=== PATIENT | female | born 1940 | race Hispanic/Latino ===

== ENCOUNTER 2016-06-08 03:31 | Inpatient (IN) | payer MEDICARE ==
[2016-06-08] MEDS ORDERED: NACL 0.9% 1000 ML 1,000 ML IV ONE (04:00)
[2016-06-08] MEDS ORDERED: SUBLIMAZE IV ONE (04:21)
[2016-06-08] MEDS ORDERED: BABY ASPIRIN PO ONE (04:22)
--- NOTE | 2016-06-08 04:22 | Emergency Department Report ---
HPI - General Chief Complaint: Extremity Injury, Lower Time Seen by Provider: 06/08/16 04:19 - HPI HPI: The patient is a 76-year-old female who presents for evaluation of right hip pain. The patient states that she fell shortly after midnight, approximately 4 hours prior to my evaluation, stating trauma to the right ear. She reports constant 10/10 in severity pain since the fall, throbbing in quality, exacerbated with attempting movement of the right leg at the hip joint. She denies trauma elsewhere, head injury, headache, neck pain, chest pain, back pain , abdominal pain. ED Past Medical Hx - Past Medical History Previous Medical History?: Yes Hx Arthritis: Yes Hx Psychiatric Treatment: Yes (depression) Additional medical history: polymalgia - Surgical History Past Surgical History?: Yes Hx Appendectomy: Yes Additional Surgical History: tubal ligation, hyster, tonsil - Social History Smoking Status: Never Smoker Substance Use Type: Alcohol - Medications Home Medications: Home Medications Medication Instructions Recorded Confirmed Last Taken Type DULoxetine [Cymbalta] 30 mg PO QDAY 06/08/16 06/08/16 Unknown History ED Review of Systems ROS: Stated complaint: RT HIP PAIN Other details as noted in HPI Constitutional: denies: fever ENT: denies: throat or neck pain Respiratory: denies: cough, shortness of breath Cardiovascular: denies: chest pain Endocrine: denies unexplained weight loss or gain Gastrointestinal: denies: abdominal pain, nausea Genitourinary: denies: dysuria Musculoskeletal: reports right hip pain denies: leg swelling Skin: denies: rash Neurological: denies: headache Hematological/Lymphatic: denies: easy bleeding or easy bruising Psych: denies sadness or hopelessness Physical Exam - Physical Exam Vital Signs: Vital Signs 06/08/16 03:36 Pulse Rate 78 Respiratory 20 Rate Blood Pressure 86/53 O2 Sat by Pulse 96 Oximetry Physical Exam: General: well-nourished, well-developed, no acute distress Head: Normocephalic, atraumatic Eyes: normal sclera ENT: Mucous membranes are pale and dry Neck: No neck stiffness, no cervical adenopathy Respiratory: Breath sounds equal bilaterally, no wheezing, rales, or rhonchi Cardio: S1 and S2 present, no murmurs, rubs, gallops, capillary refill is delayed Abdomen: Normoactive bowel sounds, soft abdomen, no rigidity, no guarding or rebound tenderness Musc: Inspection of the right leg reveals a shortened externally rotated right leg, tenderness to palpation to the right hip, distal sensation, motor function , and pulses intact Skin: No rash Neuro: no facial drooping, normal speech Psych: Normal affect ED Course Vital Signs 06/08/16 03:36 Pulse Rate 78 Respiratory 20 Rate Blood Pressure 86/53 O2 Sat by Pulse 96 Oximetry ED Medical Decision Making - Medical Decision Making The patient was seen and examined by myself. The patient is placed on a monitor and storage bin tender and continuous pulse ox. On initial evaluation, the patient was found to be in no distress. Evaluation orders were placed. The patient received IV fentanyl via EMS in route. X-ray of the right hip reveals a displaced acute right femoral neck fracture. The patient is given 1 L normal saline fluid bolus. IV fentanyl is ordered for the patient. The on-call orthopedic surgeon Dr. Ramírez contacted. He agrees to consultation and requested the patient be made nothing by mouth and admitted to the hospitalist service. The on-call hospitalist Dr. Alvarado was contacted and informed of Dr. Ramírez's request. Dr. Alvarado agreed to admit the patient. The ED admit order was placed. The patient will be admitted in guarded condition. Critical care attestation.: If time is entered above; I have spent that time in minutes in the direct care of this critically ill patient, excluding procedure time. ED Disposition Clinical Impression: Closed displaced fracture of right femoral neck, Dehydration Fall from standing Qualifiers: Encounter type: initial encounter Qualified Code(s): W19.XXXA - Unspecified fall, initial encounter Disposition: OP ADMITTED IP TO THIS HOSP Is pt being admited?: Yes Does the pt Need Aspirin: Yes Condition: Fair Referrals: PRIMARY CARE, [Primary Care Provider] - 3-5 Days Time of Disposition: 04:21
[2016-06-08] MEDS ORDERED: DULCOLAX PR PRN (06:08)
[2016-06-08] MEDS ORDERED: TYLENOL PO PRN ×2 (06:08→19:49)
[2016-06-08] MEDS ORDERED: ZOFRAN IV PRN (06:08)
[2016-06-08] MEDS ORDERED: MORPHINE IV PRN (06:08)
[2016-06-08] MEDS ORDERED: MILK OF MAGNESIA PO PRN (06:08)
--- NOTE | 2016-06-08 06:12 | History and Physical Report ---
History of Present Illness Date of examination: 06/08/16 History of present illness: 76-year-old man with a history of depression comes emergency room today because she had a fall in her kitchen, landed on the right side and had difficulty moving. She complains of right hip pain Patient denies chest pain, palpitation, shortness of breath, cough, abdominal pain, hematochezia, dysuria, frequency, focal weakness, dysarthria, fever chills , polydipsia polyuria, hot or cold intolerance, easy bruisability, or rash or bleeding from mucosal membrane, rhinorrhea, epistaxis, earache, tinnitus, blurry vision, eye discharge, anxiety, depression. Other review of systems negative PAST SURGICAL HISTORY: Tubal ligation, appendectomy, tonsillectomy SOCIAL HISTORY: Drinks a glass of wine a day, no alcohol or drugs FAMILY HISTORY: Hypertension Medications and Allergies Allergies Allergy/AdvReac Type Severity Reaction Status Date / Time codeine Allergy Unknown Verified 06/08/16 03:48 Penicillins Allergy Unknown Verified 06/08/16 03:48 Home Medications Medication Instructions Recorded Confirmed Last Taken Type DULoxetine [Cymbalta] 30 mg PO QDAY 06/08/16 06/08/16 Unknown History Exam - Physical Exam Narrative exam: Gen. appearance: Patient lying in bed, no apparent distress HEENT: Normocephalic, atraumatic, pupils equally round and reactive to light, extraocular movement intact, and no sclericterus,. No JVD or thyromegaly or nodule,neck supple, no carotid bruit ,mucous membranes moist, no exudate or erythema Heart: S1, S2, regular rate and rhythm Lungs: Clear to auscultation bilaterally, breathing comfortable Abdomen: Positive bowel sounds, nontender, nondistended, no organomegaly Extremity: No edema, cyanosis, clubbing Skin: No rash, nodules, warm, dry Neuro: Oriented 3, cranial nerves II-12 intact, speech is fluent, sensory intact - Constitutional Vitals: Temp Pulse Resp BP Pulse Ox 79 15 96/52 94 06/08/16 05:45 06/08/16 05:45 06/08/16 05:45 06/08/16 05:45 Results - Labs CBC & Chem 7: 06/08/16 05:05 Assessment and Plan Follow official read of chest and hip x-ray Acute hip fracture Depression Admits medicine Start IV fluid, bowel rest, consult orthopedic surgery Start IV morphine, DVT prophylaxis Labs pending
[2016-06-08 06:15] LABS: Basophils % (Auto) 0.6 % (0.0-1.8); Eosinophils % (Auto) 2.3 % (0.0-4.3); Hematocrit 35.3 % (30.3-42.9); Hemoglobin 11.2 gm/dl (10.1-14.3); Mean Corpuscular HGB Conc 32 % (30-34); Mean Corpuscular Volume 82 fl (79-97); Platelet Count 307 K/mm3 (140-440); Red Blood Count 4.33 M/mm3 (3.65-5.03); White Blood Count 10.9 K/mm3 (4.5-11.0)
[2016-06-08 06:31] LABS: Mean Corpuscular Hemoglobin 26 pg (28-32)
[2016-06-08 06:32] LABS: Anion Gap 18 mmol/L; Blood Urea Nitrogen 16 mg/dL (7-17); Carbon Dioxide 23 mmol/L (22-30); Chloride 103.2 mmol/L (98-107); Glucose 94 mg/dL (65-100); Potassium 4.3 mmol/L (3.6-5.0); Sodium 140 mmol/L (137-145)
--- NOTE | 2016-06-08 06:38 | Admit Criteria Form ---
Admission Criteria Documentation: MUSCULOSKELETAL DISEASE GRG Clinical Indications for Admission to Inpatient Care (Place 'X' for any and all applicable criteria): Hospital admission is needed for appropriate care of the patient because of 1 or more of the following: [X ]I. Fracture, dislocation, or other musculoskeletal injury requiring inpatient care(medical) as indicated by 1 or more of the following(4)(5)(6)(7) [ ]a) Vertebral fracture requiring observation for instability or neurologic compromise (8) [ ]b) Compartment syndrome (proven or cannot be ruled out during observation level of care) (9) [ ]c) Limb-threatening injury [X ]d) Major injury requiring inpatient stabilization such as traction initiation or external fixation before internal fixation or closure of complex or open fracture [X ]e) Major injury requiring inpatient treatment after emergency or observation level care (as appropriate) [ ]f) Severe pain requiring acute inpatient management [ ]g) Injury with suspicion of abuse or neglect (eg., child, dependent elderly) [ ]II. Newly diagnosed or suspected bone, joint, or orthopedic device infection (e.g., osteomyelitis, septic arthritis) needing 1 or more of the following(1)(2)(3) [ ]a) IV antibiotics that cannot be initiated in other than inpatient setting (e.g., patient too unstable or home infusion not available) [ ]b) Device removal or replacement [ ]c) Bone or soft tissue debridement [ ]d) Joint drainage (drain placement or repetitive aspirations) [ ]III. Severe rheumatologic disease (e.g., systemic lupus erythematosus, rheumatoid arthritis) with complications or comorbidities (Also use Optimal Recovery Care Criteria or General Recovery Criteria as appropriate on the basis of predominant condition), including 1 or more of the following( 10)(11)(12)(13) [ ]a) Severe infection (e.g., STAFF REGISTERED NURSE infection, sepsis) (14) [ ]b) Respiratory complications, including 1 or more of the following : [ ]i) Pleural effusion with respiratory compromise [ ]ii) Pulmonary hypertension with congestive failure [ ]iii) Respiratory failure [ ]iv) Pulmonary hemorrhage (15) [ ]c) Hematologic disease, including 1 or more of the following: [ ]i) Coagulopathy with bleeding [ ]ii) Thrombosis with hypercoagulable state [ ]iii) Thrombotic thrombocytopenic purpura [ ]d) Cerebritis with seizures, psychosis, or other severe abnormalities [ ]e) Vertebral destruction with monitoring needed for cervical myelopathy& possible respiratory compromise [ ]f) Exacerbation that requires inpatient treatment (e.g., intravenous immunosuppression) (16) [ ]g) Acute renal failure [ ]h) Cerebritis with seizures, psychosis, Altered mental status, or other neurologic abnormalities [ ]i) Pericardial effusion with tamponade [ ]j) Vertebral destruction, with monitoring needed for cervical myelopathy and possible respiratory compromise [ ]IV. Severe vasculitis with complications or comorbidities (Also use Optimal Recovery Care Criteria General Recovery Criteria as appropriate on the basis of predominant condition), including 1 or more of the following(11)(12)(17)(18)(19)(20) [ ]a) Exacerbation that requires inpatient treatment (e.g., intravenous immunosuppression) (19)(21) [ ]b) Pulmonary hemorrhage (15) [ ]c) STAFF REGISTERED NURSE vasculitis with seizures, psychosis, Altered mental status that is severe or persistent, or other severe abnormalities (22) [ ]d) Cerebral infarction [ ]e) Gastrointestinal ischemia [ ]f) Gangrene or threatened amputation [ ]g) Renal failure (16) [ ]h) Other significant complications of vasculitis ( eg., tissue or organ ischemia, organ dysfunction ) [ ]V. Severe myopathy as indicated by 1 or more of the following (28)(29) [ ]a) New onset of airway compromise or inability to swallow [ ]b) Respiratory deterioration with observation needed for impending respiratory failure [ ]c) Exacerbation that requires inpatient treatment (e.g., intravenous immunosuppression) [ ]. Severe crystal gout (arthropathy) indicated by 1 or more of the following (23)(24) [ ]a) Severe pain requiring acute inpatient management [ ]b) Exacerbation that requires inpatient treatment (e.g., intravenous treatment) [ ]VII.Rhabdomyolysis and 1 or more of the following (25)(26)(27) [ ]a) Acute renal failure [ ]b) Need for intravenous hydration after emergency or observation level care (as appropriate) [ ]c) Inability to maintain oral hydration [ ]d) Change in mental status [ ]e) Electrolyte abnormality that remains after emergency or observation level care (as appropriate) [ ]VIII Post amputation complication, as indicated by ANY ONE of the following [ ]a) Infection [ ]b) Dehiscence [ ]c) Myodesis failure [ ]IX. Severe pain requiring acute inpatient management due to musculoskeletal condition [ ]X. Musculoskeletal Disease and ALL of the following: [ ]a) Symptom or finding for which emergency and observation care have failed or are not considered appropriate (Use General Criteria: Observation Care as appropriate) [ ]b) Presence of ANY ONE of the following [ ]i) A General Admission Criteria [ ]ii) A Pediatric General Admission Criteria The original [facility] [employer] content created by [facility] [employer] has been revised. The portions of the content which have been revised are identified through the use of italic text or in bold, and [facility] has neither reviewed nor approved the modified material. All other unmodified content is copyright [facility] [employer]. Please see references footnoted in the original [facility] edition 2016 Admission Criteria Met: Yes
[2016-06-08 06:40] LABS: INR 1.22 (0.87-1.13)
[2016-06-08 06:41] LABS: Partial Thromboplastin Time 43.4 Sec. (24.2-36.6)
[2016-06-08] MEDS ORDERED: NACL 0.45% 1000 ML 1,000 ML IV SCH (07:00)
[2016-06-08] MEDS ORDERED: MORPHINE ONE ×3 (07:21→16:55)
[2016-06-08] MEDS ORDERED: MORPHINE IV ONE (08:03)
--- NOTE | 2016-06-08 08:17 | XRay Report ---
AP PELVIS ONE VIEW: 06/08/16 03:31:00 CLINICAL: Fall and right leg pain. FINDINGS: Deformity of the right hip is consistent with a subcapital femoral neck fracture. Because of rotation, the fracture line is not clearly identified. However, the orientation of the femoral head to the neck is grossly abnormal. No callus. Moderate arthritis of the hips. Mild bilateral SI joint sclerosis. No other fracture. IMPRESSION: An acute displaced traumatic right femoral neck fracture.
--- NOTE | 2016-06-08 08:18 | XRay Report ---
AP CHEST : 06/08/16 04:30 CLINICAL: Preoperative clearance for right hip surgery. History of dyspnea and chest pain. COMPARISON:None FINDINGS: Normal heart and pulmonary vessels. The lungs are normally expanded and clear. No airspace disease or pleural effusion. The bones and soft tissues are unremarkable. IMPRESSION: No acute cardiopulmonary process.
[2016-06-08] MEDS ORDERED: VANCOMYCIN/NS 1 GM/250 ML 1 GM/250 ML BAG IV NR (09:00)
[2016-06-08] MEDS: LOVENOX SUB-Q SCH (10:15)
[2016-06-08] MEDS: MORPHINE IV PRN (10:38)
[2016-06-08] MEDS ORDERED: D5/0.45NS 1,000 ML IV SCH (11:00)
--- NOTE | 2016-06-08 14:37 | Consultation ---
History of Present Illness - HPI Consult date: 06/08/16 Medications and Allergies Allergies Allergy/AdvReac Type Severity Reaction Status Date / Time codeine Allergy Unknown Verified 06/08/16 03:48 Penicillins Allergy Unknown Verified 06/08/16 03:48 Home Medications Medication Instructions Recorded Confirmed Last Taken Type DULoxetine [Cymbalta] 30 mg PO QDAY 06/08/16 06/08/16 Unknown History Active Meds: Active Medications Acetaminophen (Tylenol) 650 mg PO Q4H PRN PRN Reason: Pain MILD(1-3)/Fever >100.5/MCDONALD Bisacodyl (Dulcolax) 10 mg [place] QDAY PRN PRN Reason: Constipation unrelieved by MOM Enoxaparin Sodium (Lovenox) 40 mg SUB-Q QDAY AYDEE Sodium Chloride (Nacl 0.45% 1000 Ml) 1,000 mls @ 75 mls/hr IV DIRECT AYDEE Last Admin: 06/08/16 10:42 Dose: 75 mls/hr Vancomycin HCl (Vancomycin/Ns 1 Gm/250 Ml) 1 gm in 250 mls @ 167.007 mls/hr IV PREOP NR PRN Reason: Protocol Stop: 06/08/16 18:00 Dextrose/Sodium Chloride (D5/0.45ns) 1,000 mls @ 75 mls/hr IV DIRECT AYDEE Magnesium Hydroxide (Milk Of Magnesia) 30 ml PO Q4H PRN PRN Reason: Constipation Morphine Sulfate (Morphine) 2 mg IV Q4H PRN PRN Reason: Pain, Moderate (4-6) Last Admin: 06/08/16 10:38 Dose: 2 mg Ondansetron HCl (Zofran) 4 mg IV Q8H PRN PRN Reason: N/V unrelieved by Reglan Assessment and Plan - Patient Problems (1) Closed displaced fracture of right femoral neck Current Visit: Yes Status: Acute Plan to address problem: Right hip hemiarthroplasty. will schedule
[2016-06-08] MEDS ORDERED: NACL 0.9% 1000 ML 1,000 ML ONE (14:44)
[2016-06-08] MEDS: NACL 0.9% 1000 ML 1,000 ML IV SCH (14:45)
[2016-06-08] MEDS ORDERED: DILAUDID ONE (14:48)
[2016-06-08] MEDS ORDERED: PEPCID IV ONE (14:54)
--- NOTE | 2016-06-08 15:08 | Anesthesia Day of Surgery ---
Anesthesia Day of Surgery - Day of Surgery Patient Examined: Yes Patient H&P Reviewed: Yes Patient is NPO: Yes
--- NOTE | 2016-06-08 15:13 | Anesthesia Consultation ---
Anesthesia Consult and Med Hx Date of service: 06/08/16 - Airway Anesthetic Teeth Evaluation: Chipped (lower front tooth), Partials ROM Head & Neck: Adequate Mental/Hyoid Distance: Adequate Mallampati Class: Class II Intubation Access Assessment: Probably Good - Pulmonary Exam CTA: Yes - Cardiac Exam Cardiac Exam: RRR - Pre-Operative Health Status ASA Pre-Surgery Classification: ASA3 Proposed Anesthetic Plan: Epidural, Spinal - Pulmonary Hx Smoking: Yes (quit 10 years ago) Hx Asthma: Yes (used inhaler 10 days ago) COPD: Yes - Cardiovascular System Hx Hypertension: No - Central Nervous System Hx Neuromuscular Disorder: Yes (Fibromyalgia) Hx Psychiatric Problems: Yes (Depression) - Endocrine Hx Non-Insulin Dependent Diabetes: No
[2016-06-08] MEDS ORDERED: PEPCID IV NR (15:30)
[2016-06-08] MEDS ORDERED: PROVENTIL IH NR (15:30)
[2016-06-08] MEDS ORDERED: NEOSPORIN GU IR ONE ×2 (16:02→17:48)
[2016-06-08] MEDS ORDERED: DIPRIVAN 10 MG/ML IV ONE ×2 (16:45→17:36)
[2016-06-08] MEDS ORDERED: XYLOCAINE MPF 2% ONE (16:45)
[2016-06-08] MEDS ORDERED: VERSED ONE (16:50)
[2016-06-08] MEDS ORDERED: ZOFRAN ONE (17:34)
[2016-06-08] MEDS ORDERED: LACTATED RINGERS 1,000 ML ONE (17:38)
[2016-06-08] MEDS ORDERED: NACL 0.9% IR ONE ×2 (17:48→17:49)
[2016-06-08] MEDS ORDERED: WATER FOR IRRIG STERILE IR ONE (17:50)
--- NOTE | 2016-06-08 18:03 | Procedure Note ---
Date of procedure: 06/08/16 Pre-op diagnosis: Right femoral neck FX Post-op diagnosis: same Procedure: Miguel arthroplasty right hip ([place]- non cemented) Anesthesia: spinal Surgeon: MAGDALENO SORENSEN Estimated blood loss: 50-100ml Pathology: list Specimen disposition: to lab Condition: stable Disposition: PACU
[2016-06-08] MEDS ORDERED: BENADRYL ONE (18:40)
[2016-06-08] MEDS ORDERED: PHENERGAN PR PRN (19:49)
[2016-06-08] MEDS ORDERED: AMBIEN PO PRN (19:49)
[2016-06-08] MEDS ORDERED: SODIUM CHLORIDE FLUSH SYRINGE 10 ML IV PRN (19:49)
[2016-06-08] MEDS ORDERED: VANCOMYCIN/NS 1 GM/250 ML 1 GM/250 ML BAG IV SCH (19:49)
[2016-06-08] MEDS: COLACE PO SCH (21:24)
--- NOTE | 2016-06-08 23:02 | Operative Report ---
PREOPERATIVE DIAGNOSIS: Displaced femoral neck fracture, right hip. POSTOPERATIVE DIAGNOSIS: Displaced femoral neck fracture, right hip. OPERATIVE PROCEDURE: Hemiarthroplasty, right hip, [place] system, noncemented. SURGEON: Jose L Ramírez MD LEATHER DRIER: Hawa Moreland CSA ANESTHESIA: Spinal with general sedation. BLOOD LOSS: Approximately 100 mL. PROCEDURE IN DETAIL: The patient was taken to surgery suite, satisfactory analgesia obtained with spinal anesthetic supplemented with general sedation. She was positioned on lateral position. The right hip area prepped in the standard fashion and was draped. The correct patient, procedure, and surgical sites were confirmed. Incision was made starting at a point approximately 5 cm distal to the tip of the trochanter, incision extended into the posterior superior iliac spine. Incision was deepened through subcutaneous, gluteus was split and was retracted proximally and distally. Joint capsule was identified and capsulotomy was done along the intertrochanteric line and the joint cavity was entered. Displaced femoral neck fracture was identified and the comminuted fragments were excised. Femoral neck was then resected at a point approximately 1 cm proximal to the lesser trochanter, the proximal fragment as well as femoral head was then extracted. Femoral head measured approximately 50 mm in diameter, trial reduction was carried out using the 50 and 51 mm femoral head, 51 mm femoral head appeared giving optimal fit and stability. The femoral medullary canal was then reamed and broached to a press fit 7, fit appeared satisfactory. Trial reduction was then carried out using the #7 component femoral and 51 mm femoral head assembly. Left length appeared satisfactory, hip appeared stable both in flexion and extension. The trial components were removed. Wound was irrigated with pulse irrigation system. A #7 ____ component was press-fitted. This was then coupled on to the femoral head assembly 51 mm outside diameter, bipolar type with 26 mm femoral head and 0 neck length. Hip was reduced following irrigation with pulse irrigation. The wound was closed in the standard fashion using 0 Vicryl, 2-0 Vicryl, and brenda. Sterile dressings were applied. She was transferred to recovery room in satisfactory condition, tolerated the procedure well and at the completion of procedure, counts were accurate. Total blood loss approximately 75-100 mL. No transfusions or blood products were given during surgery. JOB# [id number] RVN/NTS
[2016-06-09] MEDS: NACL 0.9% 1000 ML 1,000 ML IV SCH ×2 (02:18→11:35)
[2016-06-09 04:46] LABS: Hematocrit 33.2 % (30.3-42.9); Hemoglobin 10.6 gm/dl (10.1-14.3)
[2016-06-09] MEDS: MORPHINE IV PRN ×2 (04:56→21:36)
[2016-06-09 05:08] LABS: Blood Urea Nitrogen 16 mg/dL (7-17); Calcium 8.3 mg/dL (8.4-10.2); Carbon Dioxide 20 mmol/L (22-30); Chloride 103.1 mmol/L (98-107); Glucose 111 mg/dL (65-100); Sodium 137 mmol/L (137-145)
[2016-06-09 06:25] LABS: Anion Gap 19 mmol/L
--- NOTE | 2016-06-09 08:04 | Progress Note ---
Assessment and Plan S/P Bipolar arthroplasty for a fractured hip Alert orientated in Nad CHEST CKLEAR SOFT ABDOMEN,WOUND INTACT Subjective Date of service: 06/09/16 Objective Vital signs: Vital Signs - 12hr 06/08/16 06/08/16 06/09/16 22:00 23:45 04:57 Temperature 98.0 F 99.0 F Pulse Rate [ 87 84 Left] Respiratory 18 18 20 Rate Blood Pressure 127/76 108/69 [Left Arm] O2 Sat by Pulse 97 98 Oximetry - Labs CBC & BMP: 06/09/16 04:21 06/09/16 04:21 Labs: Abnormal lab results 06/09/16 Range/Units 04:21 Carbon Dioxide 20 L (22-30) mmol/L Creatinine 0.4 L (0.7-1.2) mg/dL Glucose 111 H (65-100) mg/dL Calcium 8.3 L (8.4-10.2) mg/dL
[2016-06-09] MEDS: PERCOCET 5/325 PO PRN ×2 (09:34→15:20)
[2016-06-09] MEDS: FLEXERIL PO SCH ×2 (09:34→21:03)
--- NOTE | 2016-06-09 10:56 | Progress Note ---
Subjective Date of service: 06/09/16 Interval history: 1st POD after bipolar hip arthroplasty Patient is in the bed, relatively comfortable. Pain is mostly controlled with pain meds. Prepare to be ambulated. No nausea or vomiting. No anesthesia complications Objective - Constitutional Vitals: Vital Signs - 12hr 06/08/16 06/09/16 06/09/16 23:45 04:57 07:00 Temperature 98.0 F 99.0 F 98.9 F Pulse Rate [ 87 84 88 Left] Respiratory 18 20 18 Rate Blood Pressure 127/76 108/69 121/65 [Left Arm] O2 Sat by Pulse 97 98 Oximetry - Labs CBC & Chem 7: 06/09/16 04:21 06/09/16 04:21 Labs: Abnormal lab results 06/09/16 Range/Units 04:21 Carbon Dioxide 20 L (22-30) mmol/L Creatinine 0.4 L (0.7-1.2) mg/dL Glucose 111 H (65-100) mg/dL Calcium 8.3 L (8.4-10.2) mg/dL
[2016-06-09] MEDS: COLACE PO SCH ×2 (11:20→21:02)
[2016-06-09] MEDS: LOVENOX SUB-Q SCH (11:20)
[2016-06-09] MEDS: THERAGRAN Tab PO SCH (11:20)
[2016-06-09] MEDS ORDERED: PNEUMOVAX 23 IM ONE (12:00)
--- NOTE | 2016-06-09 15:11 | Consultation ---
History of Present Illness - Reason for Consult Consult date: 06/09/16 memory loss - History of Present Illness spoke to Dr. Ramírez based on hx sounds like early memory loss will check CT to r /o Alzheimer's Disease thanks Medications and Allergies Allergies Allergy/AdvReac Type Severity Reaction Status Date / Time codeine Allergy Unknown Verified 06/08/16 03:48 Penicillins Allergy Unknown Verified 06/08/16 03:48 Home Medications Medication Instructions Recorded Confirmed Last Taken Type DULoxetine [Cymbalta] 30 mg PO QDAY 06/08/16 06/08/16 Unknown History Active Meds: Active Medications Acetaminophen (Tylenol) 650 mg PO Q4H PRN PRN Reason: Pain MILD(1-3)/Fever >100.5/MCDONALD Acetaminophen (Tylenol) 650 mg PO Q4H PRN PRN Reason: Pain MILD(1-3)/Fever >100.5/MCDONALD Bisacodyl (Dulcolax) 10 mg [place] QDAY PRN PRN Reason: Constipation unrelieved by MOM Celecoxib (Celebrex) 100 mg PO BID [facility] Last Admin: 06/09/16 11:20 Dose: 100 mg Cyclobenzaprine HCl (Flexeril) 5 mg PO BID [facility] Last Admin: 06/09/16 09:34 Dose: 5 mg Docusate Sodium (Colace) 100 mg PO BID [facility] Last Admin: 06/09/16 11:20 Dose: 100 mg Enoxaparin Sodium (Lovenox) 40 mg SUB-Q QDAY [facility] Last Admin: 06/09/16 11:20 Dose: 40 mg Dextrose/Sodium Chloride (D5/0.45ns) 1,000 mls @ 75 mls/hr IV DIRECT [facility] Sodium Chloride (Nacl 0.9% 1000 Ml) 1,000 mls @ 75 mls/hr IV DIRECT [facility] Last Admin: 06/09/16 11:35 Dose: 75 mls/hr Ketorolac Tromethamine (Toradol) 15 mg IV Q6H PRN PRN Reason: Pain, Mild (1-3) Stop: 06/13/16 19:48 Magnesium Hydroxide (Milk Of Magnesia) 30 ml PO Q4H PRN PRN Reason: Constipation Morphine Sulfate (Morphine) 2 mg IV Q4H PRN PRN Reason: Pain, Moderate (4-6) Last Admin: 06/09/16 04:56 Dose: 2 mg Multivitamins (Theragran Tab) 1 each PO QDAY AYDEE Last Admin: 06/09/16 11:20 Dose: 1 each Ondansetron HCl (Zofran) 4 mg IV Q8H PRN PRN Reason: N/V unrelieved by Reglan Oxycodone/Acetaminophen (Percocet 5/325) 1 tab PO Q6H PRN PRN Reason: Pain, Moderate (4-6) Last Admin: 06/09/16 09:34 Dose: 1 tab Promethazine HCl (Phenergan) 25 mg ID Q6H PRN PRN Reason: Nausea And Vomiting Sodium Chloride (Sodium Chloride Flush Syringe 10 Ml) 10 ml IV PRN PRN PRN Reason: LINE FLUSH Zolpidem Tartrate (Ambien) 5 mg PO QHS PRN PRN Reason: Sleep Exam - Constitutional Vitals: Temp Pulse Resp BP Pulse Ox 98.9 F 88 18 121/65 98 06/09/16 07:00 06/09/16 07:00 06/09/16 07:00 06/09/16 07:00 06/09/16 04:57 Results - Labs CBC & Chem 7: 06/09/16 04:21 06/09/16 04:21 Labs: Abnormal lab results 06/09/16 Range/Units 04:21 Carbon Dioxide 20 L (22-30) mmol/L Creatinine 0.4 L (0.7-1.2) mg/dL Glucose 111 H (65-100) mg/dL Calcium 8.3 L (8.4-10.2) mg/dL
--- NOTE | 2016-06-09 18:45 | Progress Note ---
Assessment and Plan Assessment and plan: 1. Right hip fracture - status post hemiarthroplasty; management per Ortho; pain control medications 2. Depression/memory loss - neurology consulted to rule out dementia 3. DVT prophylaxis - Lovenox History Interval history: s/p hip hemiarthroplasty, pain controlled Hospitalist Physical - Constitutional Vitals: Temp Pulse Resp BP Pulse Ox 97.7 F 58 L 18 118/72 100 06/09/16 16:00 06/09/16 16:00 06/09/16 16:00 06/09/16 16:00 06/09/16 16:00 General appearance: Present: no acute distress, well-nourished - EENT Eyes: Present: PERRL, EOM intact. Absent: scleral icterus, conjunctival injection - Neck Neck: Present: supple. Absent: enlarged thyroid, masses or JVD - Respiratory Respiratory effort: normal Respiratory: bilateral: CTA, negative: rales, rhonchi - Cardiovascular Rhythm: regular Heart Sounds: Present: S1 & S2. Absent: systolic murmur - Extremities Extremities: no ischemia Extremity abnormal: other (Limited range of motion due to hip pain) - Abdominal General gastrointestinal: soft, non-tender, non-distended, normal bowel sounds - Integumentary Integumentary: Present: warm, dry. Absent: jaundice, rash - Psychiatric Psychiatric: cooperative - Neurologic Neurologic: CNII-XII intact, no focal deficits Results - Labs CBC & Chem 7: 06/09/16 04:21 06/09/16 04:21 Labs: Laboratory Last Values WBC 10.9 K/mm3 (4.5-11.0) 06/08/16 05:05 RBC 4.33 M/mm3 (3.65-5.03) 06/08/16 05:05 Hgb 10.6 gm/dl (10.1-14.3) 06/09/16 04:21 Hct 33.2 % (30.3-42.9) 06/09/16 04:21 MCV 82 fl (79-97) 06/08/16 05:05 MCH 26 pg (28-32) L 06/08/16 05:05 MCHC 32 % (30-34) 06/08/16 05:05 RDW 17.0 % (13.2-15.2) H 06/08/16 05:05 Plt Count 307 K/mm3 (140-440) 06/08/16 05:05 Lymph % (Auto) 19.9 % (13.4-35.0) 06/08/16 05:05 [place] % (Auto) 9.5 % (0.0-7.3) H 06/08/16 05:05 Eos % (Auto) 2.3 % (0.0-4.3) 06/08/16 05:05 Baso % (Auto) 0.6 % (0.0-1.8) 06/08/16 05:05 Lymph # 2.2 K/mm3 (1.2-5.4) 06/08/16 05:05 [place] # 1.0 K/mm3 (0.0-0.8) H 06/08/16 05:05 Eos # 0.3 K/mm3 (0.0-0.4) 06/08/16 05:05 Baso # 0.1 K/mm3 (0.0-0.1) 06/08/16 05:05 Seg Neutrophils % 67.7 % (40.0-70.0) 06/08/16 05:05 Seg Neutrophils # 7.4 K/mm3 (1.8-7.7) 06/08/16 05:05 PT 15.3 Sec. (12.2-14.9) H 06/08/16 05:05 INR 1.22 (0.87-1.13) H 06/08/16 05:05 APTT 43.4 Sec. (24.2-36.6) H 06/08/16 05:05 Sodium 137 mmol/L (137-145) 06/09/16 04:21 Potassium 5.0 mmol/L (3.6-5.0) 06/09/16 04:21 Chloride 103.1 mmol/L (98-107) 06/09/16 04:21 Carbon Dioxide 20 mmol/L (22-30) L 06/09/16 04:21 Anion Gap 19 mmol/L 06/09/16 04:21 BUN 16 mg/dL (7-17) 06/09/16 04:21 Creatinine 0.4 mg/dL (0.7-1.2) L 06/09/16 04:21 Estimated GFR > 60 ml/min 06/09/16 04:21 BUN/Creatinine Ratio 40.00 % 06/09/16 04:21 Glucose 111 mg/dL (65-100) H 06/09/16 04:21 Calcium 8.3 mg/dL (8.4-10.2) L 06/09/16 04:21 Blood Type O POSITIVE 06/08/16 05:05 Antibody Screen TNR 06/08/16 05:05 ANGELITO Antibody Screen Negative 06/08/16 05:05
[2016-06-10] MEDS: MORPHINE IV PRN ×2 (03:34→15:32)
[2016-06-10] MEDS: PERCOCET 5/325 PO PRN ×3 (05:39→22:27)
--- NOTE | 2016-06-10 07:39 | XRay Report ---
RIGHT HIP RADIOGRAPH INDICATION: Postop hip replacement. COMPARISON: Yesterday. FINDINGS: Single, frontal right hip radiograph demonstrates interval hip replacement with expected overlying skin brenda and soft tissue appearance. CONCLUSION: Expected right total hip replacement postoperative appearance. Thank you for the opportunity to participate in this patient's care.
--- NOTE | 2016-06-10 08:00 | Cat Scan Report ---
CT HEAD WITHOUT CONTRAST INDICATION: Altered mental status. COMPARISON: None similar. FINDINGS: Noncontrast head CT demonstrates symmetric, age-appropriate ventricles and sulci. Mild periventricular white matter hypodensities. Approximately 1.3 cm right subinsular cortex hypodensity near the sylvian fissure as on axial image 18, series 2 is of indeterminate age. No definite acute infarct, hemorrhage, mass effect or midline shift. No abnormal extra-axial fluid collections. 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 Otherwise unremarkable posterior fossa with preserved basilar cisterns. Normal eye globes. Mild bilateral ethmoid sinusitis. Slight bilateral maxillary and sphenoid sinus mucosal thickening as well. Clear frontal sinuses and mastoid air cells. Left greater than right external auditory canal debris may be directly visualized. Mild atherosclerotic internal carotid artery calcifications. Normal calvarium and scalp. Few radiopaque dental material and missing teeth noted. CONCLUSION: 1. Approximately 1 cm right subinsular cortical hypodensity, of indeterminate CT age, though may be old. Please also correlate clinically. Direct comparison with prior neuroimaging would also be helpful, if available. 2. Other findings, including mild sinusitis. Thank you for the opportunity to participate in this patient's care.
[2016-06-10] MEDS: COLACE PO SCH ×2 (09:44→22:29)
[2016-06-10] MEDS: THERAGRAN Tab PO SCH (09:44)
[2016-06-10] MEDS: LOVENOX SUB-Q SCH (09:45)
[2016-06-10] MEDS: TORADOL IV PRN ×2 (09:45→22:30)
[2016-06-10] MEDS: FLEXERIL PO SCH ×2 (09:45→22:28)
--- NOTE | 2016-06-10 14:34 | Progress Note ---
Assessment and Plan - Patient Problems (1) Closed displaced fracture of right femoral neck Status: Acute Plan to address problem: Right hip hemiarthroplasty, doing well. Ortho status stable, she may be discharged to [facility]/SNF when bed available, continue with DVT prophylaxis, weightbearing as tolerated with walker, avoid flexion adduction internal rotation. Patient's family informed me that her they will be taking her to [place], to her sister where she will continue with rehabilitation program. Followup with orthopedist in [place] or if she wished to come to [place] for followup as be glad see her back. Subjective Date of service: 06/10/16 Interval history: status post hemiarthroplasty, no specific complaints, out of bed. Doing well postop. Objective Vital signs: Vital Signs - 12hr 06/10/16 06/10/16 06/10/16 03:34 04:04 04:31 Temperature 99.8 F H Pulse Rate [ Apical] Respiratory 17 18 Rate Blood Pressure [Left Arm] O2 Sat by Pulse Oximetry 06/10/16 06/10/16 06/10/16 05:39 06:33 08:00 Temperature 98 F Pulse Rate [ 96 H Apical] Respiratory 20 18 18 Rate Blood Pressure 134/74 [Left Arm] O2 Sat by Pulse 93 Oximetry 06/10/16 12:00 Temperature 98.4 F Pulse Rate [ 100 H Apical] Respiratory 18 Rate Blood Pressure 123/69 [Left Arm] O2 Sat by Pulse Oximetry - Labs CBC & BMP: 06/09/16 04:21 06/09/16 04:21
--- NOTE | 2016-06-10 14:40 | Progress Note ---
Assessment and Plan Assessment and plan: 1. Right hip fracture - status post hemiarthroplasty; management per Ortho; pain control medications; evaluated by PT 2. Depression/memory loss - neurology consulted to rule out dementia 3. DVT prophylaxis - Lovenox 4. Discharge planning - when cleared by Ortho History Interval history: s/p hip hemiarthroplasty, POD 2, doing well, pain controlled Hospitalist Physical - Constitutional Vitals: Temp Pulse Resp BP Pulse Ox 98.4 F 100 H 18 123/69 93 06/10/16 12:00 06/10/16 12:00 06/10/16 12:00 06/10/16 12:00 06/10/16 08:00 General appearance: Present: no acute distress, well-nourished - EENT Eyes: Present: PERRL, EOM intact - Neck Neck: Present: supple, normal ROM. Absent: masses or JVD - Respiratory Respiratory effort: normal Respiratory: bilateral: CTA, negative: rhonchi, wheezing - Cardiovascular Rhythm: regular Heart Sounds: Present: S1 & S2. Absent: systolic murmur - Extremities Extremities: no ischemia - Abdominal General gastrointestinal: soft, non-tender, non-distended, normal bowel sounds - Psychiatric Psychiatric: cooperative - Neurologic Neurologic: CNII-XII intact, no focal deficits Results - Labs CBC & Chem 7: 06/09/16 04:21 06/09/16 04:21 Labs: Laboratory Last Values WBC 10.9 K/mm3 (4.5-11.0) 06/08/16 05:05 RBC 4.33 M/mm3 (3.65-5.03) 06/08/16 05:05 Hgb 10.6 gm/dl (10.1-14.3) 06/09/16 04:21 Hct 33.2 % (30.3-42.9) 06/09/16 04:21 MCV 82 fl (79-97) 06/08/16 05:05 MCH 26 pg (28-32) L 06/08/16 05:05 MCHC 32 % (30-34) 06/08/16 05:05 RDW 17.0 % (13.2-15.2) H 06/08/16 05:05 Plt Count 307 K/mm3 (140-440) 06/08/16 05:05 Lymph % (Auto) 19.9 % (13.4-35.0) 06/08/16 05:05 [place] % (Auto) 9.5 % (0.0-7.3) H 06/08/16 05:05 Eos % (Auto) 2.3 % (0.0-4.3) 06/08/16 05:05 Baso % (Auto) 0.6 % (0.0-1.8) 06/08/16 05:05 Lymph # 2.2 K/mm3 (1.2-5.4) 06/08/16 05:05 [place] # 1.0 K/mm3 (0.0-0.8) H 06/08/16 05:05 Eos # 0.3 K/mm3 (0.0-0.4) 06/08/16 05:05 Baso # 0.1 K/mm3 (0.0-0.1) 06/08/16 05:05 Seg Neutrophils % 67.7 % (40.0-70.0) 06/08/16 05:05 Seg Neutrophils # 7.4 K/mm3 (1.8-7.7) 06/08/16 05:05 PT 15.3 Sec. (12.2-14.9) H 06/08/16 05:05 INR 1.22 (0.87-1.13) H 06/08/16 05:05 APTT 43.4 Sec. (24.2-36.6) H 06/08/16 05:05 Sodium 137 mmol/L (137-145) 06/09/16 04:21 Potassium 5.0 mmol/L (3.6-5.0) 06/09/16 04:21 Chloride 103.1 mmol/L (98-107) 06/09/16 04:21 Carbon Dioxide 20 mmol/L (22-30) L 06/09/16 04:21 Anion Gap 19 mmol/L 06/09/16 04:21 BUN 16 mg/dL (7-17) 06/09/16 04:21 Creatinine 0.4 mg/dL (0.7-1.2) L 06/09/16 04:21 Estimated GFR > 60 ml/min 06/09/16 04:21 BUN/Creatinine Ratio 40.00 % 06/09/16 04:21 Glucose 111 mg/dL (65-100) H 06/09/16 04:21 Calcium 8.3 mg/dL (8.4-10.2) L 06/09/16 04:21 Blood Type O POSITIVE 06/08/16 05:05 Antibody Screen TNR 06/08/16 05:05 ANGELITO Antibody Screen Negative 06/08/16 05:05
[2016-06-11] MEDS: MORPHINE IV PRN (08:08)
[2016-06-11] MEDS: COLACE PO SCH (10:20)
[2016-06-11] MEDS: FLEXERIL PO SCH (10:20)
[2016-06-11] MEDS: LOVENOX SUB-Q SCH (10:20)
[2016-06-11] MEDS: THERAGRAN Tab PO SCH (10:20)
--- NOTE | 2016-06-11 15:51 | Progress Note ---
Assessment and Plan Assessment and plan: 1. Right hip fracture - status post hemiarthroplasty; management per Ortho; pain control medications; PT 2. Depression/memory loss - neurology consulted to rule out dementia 3. DVT prophylaxis - Lovenox 4. Discharge planning - when cleared by Ortho History Interval history: s/p hip hemiarthroplasty, POD 3, doing well, pain controlled Hospitalist Physical - Constitutional Vitals: Temp Pulse Resp BP Pulse Ox 98.0 F 86 18 140/85 96 06/11/16 08:00 06/11/16 08:00 06/11/16 08:00 06/11/16 08:00 06/11/16 08:00 General appearance: Present: no acute distress, well-nourished - EENT Eyes: Present: PERRL, EOM intact. Absent: scleral icterus, conjunctival injection - Neck Neck: Present: supple, normal ROM. Absent: masses or JVD - Respiratory Respiratory effort: normal Respiratory: bilateral: CTA, negative: rhonchi, wheezing - Cardiovascular Rhythm: regular Heart Sounds: Present: S1 & S2. Absent: systolic murmur - Extremities Extremities: no ischemia - Abdominal General gastrointestinal: soft, non-tender, non-distended, normal bowel sounds - Psychiatric Psychiatric: cooperative - Neurologic Neurologic: CNII-XII intact, no focal deficits Results - Labs CBC & Chem 7: 06/09/16 04:21 06/09/16 04:21 Labs: Laboratory Last Values WBC 10.9 K/mm3 (4.5-11.0) 06/08/16 05:05 RBC 4.33 M/mm3 (3.65-5.03) 06/08/16 05:05 Hgb 10.6 gm/dl (10.1-14.3) 06/09/16 04:21 Hct 33.2 % (30.3-42.9) 06/09/16 04:21 MCV 82 fl (79-97) 06/08/16 05:05 MCH 26 pg (28-32) L 06/08/16 05:05 MCHC 32 % (30-34) 06/08/16 05:05 RDW 17.0 % (13.2-15.2) H 06/08/16 05:05 Plt Count 307 K/mm3 (140-440) 06/08/16 05:05 Lymph % (Auto) 19.9 % (13.4-35.0) 06/08/16 05:05 [place] % (Auto) 9.5 % (0.0-7.3) H 06/08/16 05:05 Eos % (Auto) 2.3 % (0.0-4.3) 06/08/16 05:05 Baso % (Auto) 0.6 % (0.0-1.8) 06/08/16 05:05 Lymph # 2.2 K/mm3 (1.2-5.4) 06/08/16 05:05 [place] # 1.0 K/mm3 (0.0-0.8) H 06/08/16 05:05 Eos # 0.3 K/mm3 (0.0-0.4) 06/08/16 05:05 Baso # 0.1 K/mm3 (0.0-0.1) 06/08/16 05:05 Seg Neutrophils % 67.7 % (40.0-70.0) 06/08/16 05:05 Seg Neutrophils # 7.4 K/mm3 (1.8-7.7) 06/08/16 05:05 PT 15.3 Sec. (12.2-14.9) H 06/08/16 05:05 INR 1.22 (0.87-1.13) H 06/08/16 05:05 APTT 43.4 Sec. (24.2-36.6) H 06/08/16 05:05 Sodium 137 mmol/L (137-145) 06/09/16 04:21 Potassium 5.0 mmol/L (3.6-5.0) 06/09/16 04:21 Chloride 103.1 mmol/L (98-107) 06/09/16 04:21 Carbon Dioxide 20 mmol/L (22-30) L 06/09/16 04:21 Anion Gap 19 mmol/L 06/09/16 04:21 BUN 16 mg/dL (7-17) 06/09/16 04:21 Creatinine 0.4 mg/dL (0.7-1.2) L 06/09/16 04:21 Estimated GFR > 60 ml/min 06/09/16 04:21 BUN/Creatinine Ratio 40.00 % 06/09/16 04:21 Glucose 111 mg/dL (65-100) H 06/09/16 04:21 Calcium 8.3 mg/dL (8.4-10.2) L 06/09/16 04:21 Blood Type O POSITIVE 06/08/16 05:05 Antibody Screen TNR 06/08/16 05:05 ANGELITO Antibody Screen Negative 06/08/16 05:05
--- NOTE | 2016-06-11 16:58 | Discharge Summary ---
Providers - Providers Date of Admission: 06/08/16 06:08 Date of discharge: 06/11/16 Attending physician: ERIC KRAUS 06/08/16 18:16 Consult to Physician [CONS] Routine Consulting Provider: OSMAR CAMPOS Reason For Exam: neuro eval/ family request Place consult to:: Dr. Campos Notified:: yes 06/08/16 19:49 Consult to Case Management [CONS] Routine Services Needed at Discharge: Nurse Practitioner Home Assessments Physical Therapy Notified:: yes Physical Therapy Evaluation and Treat [CONS] Routine Comment: avoid flexion, add, int rotation of operative hip Reason For Exam: post op/ hip fx Weight bearing status?: Full wt bearing Assistive devices?: Yes Primary care physician: HE[facility] INFORMATION TECH Hospitalization Reason for admission: fall Condition: Stable Pertinent studies: CXR CT head Pelvis X-ray Procedures: Right hip hemiarthroplasty Hospital course: Patient is a 76 years old female who sustained a fall at home subsequent right hip pain and requesting walking. Diagnosed with right hip fracture. Ortho consulted and underwent hemiarthroplasty. Postoperatively was evaluated by PT and is discharged in stable condition. She will use a rolling walker and will follow-up with ortho. Discharge diagnosis: 1. Right hip fracture - status post hemiarthroplasty 2. Depression/memory loss Disposition: DC/[place] HOME UNDER HOME HEALTH Time spent for discharge: 35 min Core Measure Documentation - Palliative Care Palliative Care/ Comfort Measures: Not Applicable - Core Measures Any of the following diagnoses?: none Exam - Constitutional Vitals: Temp Pulse Resp BP Pulse Ox 98.0 F 86 18 140/85 96 06/11/16 08:00 06/11/16 08:00 06/11/16 08:00 06/11/16 08:00 06/11/16 08:00 Plan Activity: advance as tolerated, fall precautions Weight Bearing Status: Weight Bear as Tolerated (per orthopedic surgeon indication) Diet: low cholesterol, low salt Follow up with: PRIMARY CARE, [Primary Care Provider] - 3-5 Days
[2016-06-11 17:36] VITALS: BP 122/74
[2016-06-11] MEDS: PERCOCET 5/325 PO PRN (18:06)
== END 2016-06-11 20:36 | disposition home health service (06) | DRG 470 ==
LOC: ED 03:31 → 2B-SURG 06:08
PROVIDERS: ADMIT Internal Medicine; ATTEND Internal Medicine
PROC: 0SRR0JA Replacement of Right Hip Joint, Femoral Surface with Synthetic Substitute, Uncemented, Open Approach (ICD-10-PCS; principal; 2016-06-08)
DX: S72.001A Fracture of unspecified part of neck of right femur, initial encounter for closed fracture (principal); F32.9 Major depressive disorder, single episode, unspecified; Z98.51 Tubal ligation status; W18.39XA Other fall on same level, initial encounter; J44.9 Chronic obstructive pulmonary disease, unspecified; M79.7 Fibromyalgia; Y93.89 Activity, other specified; Y92.090 Kitchen in other non-institutional residence as the place of occurrence of the external cause; Y99.8 Other external cause status; Z82.49 Family history of ischemic heart disease and other diseases of the circulatory system; Z88.5 Allergy status to narcotic agent; Z88.0 Allergy status to penicillin; Z87.891 Personal history of nicotine dependence
CPT/HCPCS: 36415; 70450; 71010; 72170; 80048; 85014; 85018; 85025; 85610; 85730; 86850; 86900; 86901; 88304; 88311; 90732; 93005; 93010; 96374; 96375; 96376; A4217; C1776; G8978-GP; G8979-GP; J1170; J1200; J1650; J1885; J2250; J2270; J2405; J2704; J3010; J3370; J7030; J7120